=== PATIENT | male | born 1945 | race Hispanic/Latino ===

== ENCOUNTER → 2020-08-30 | Outpatient (CLI) | payer OTHER ==
[~2020-08-30] VITALS: Ht 170.2 cm; Wt 67.6 kg
[~2020-08-30] MED LIST: AMLO-258 PO; ASPI-1197 PO; HYDR-4154 PO; LISI40TA9 PO; METO50TA18 PO; REGADENOSON 0.4 MG/5 ML PF SYG IVP SCH; SIMV10TA97 PO; TAMS0.4C32 PO
== END | disposition home or self-care (01) ==
LOC: SHCH 07:36
PROVIDERS: ATTEND Internal Medicine Cardiovascular Disease
DX: I20.9 Angina pectoris, unspecified (principal); I10 Essential (primary) hypertension; E78.5 Hyperlipidemia, unspecified
CPT/HCPCS: 78452; 93017; 96374; A9500 ×2; J2785